=== PATIENT | female | born 1960 | race Caucasian/White ===

== ENCOUNTER → 2018-07-08 08:08 | Outpatient (CLI) | payer OTHER, SELFPAY ==
[2018-07-08 09:20] LABS: Appearance Urine UA CLEAR; Bilirubin Urine UA NEGATIVE (NEGATIVE); Color Urine UA YELLOW; Glucose Urine UA NEGATIVE (Negative); Ketones Urine UA NEGATIVE (NEGATIVE); Leukocyte Esterase Urine UA NEGATIVE (NEGATIVE); Nitrite Urine UA NEGATIVE (Negative); Occult Blood Urine UA TRACE-LYSED (Negative); Protein Urine UA NEGATIVE (Negative); Urobilinogen Urine UA 0.2 E.U./dL (0.2); pH Urine UA 6.5 (4.5-8.0)
[2018-07-08 09:22] LABS: Add Manual Diff / Slide Review NO; Basophils Absolute Auto 0 /uL (0-100); Basophils Percent Auto 0.8 % (0-2); Eosinophils Absolute Auto 200 /uL (0-450); Eosinophils Percent Auto 3.3 % (2-4); Hematocrit 39.9 % (36-46); Hemoglobin 13.2 g/dL (12.0-16.0); Lymphocytes Absolute Auto 1900 /uL (1100-4500); Lymphocytes Percent Auto 38.3 % (25-40); Mean Corpuscular HGB Conc 33.1 % (30-36); Mean Corpuscular Hemoglobin 30.4 PG (26-34); Mean Corpuscular Volume 91.9 fL (80-100); Monocytes Absolute Auto 500 /uL (0-900); Monocytes Percent Auto 9.5 % (3-14); Neutrophils Absolute Auto 2400 /uL (1500-7000); Neutrophils Percent Auto 48.1 % (50-75); Platelet Count 298 X10^3/uL (150-400); Red Blood Cell Count 4.34 X10^6/uL (4.0-5.2); Red Cell Distribution Width 13.9 % (11.6-14.8); White Blood Cell Count 4.9 X10^3/uL (4.5-11.0)
[2018-07-08 09:49] LABS: Alanine Aminotransferase 18 IU/L (9-52); Albumin 4.5 g/dL (3.5-5.0); Albumin Globulin Ratio 1.6 (1.0-2.8); Alkaline Phosphatase 64 U/L (38-126); Aspartate Aminotransferase 34 IU/L (14-36); BUN Creatinine Ratio 23.3 (6-22); Bilirubin Total 0.6 mg/dL (0.2-1.3); Blood Urea Nitrogen 21 mg/dL (7-17); Calcium 9.2 mg/dL (8.4-10.2); Carbon Dioxide 29 mmol/L (22-32); Chloride 101 mmol/L (98-107); Cholesterol 225 mg/dL (140-199); Estimated Glomerular Filt Rate > 60.0 mL/min (>60); Globulin 2.8 g/dL (1.7-4.1); Glucose 91 mg/dL (70-100); HEMOLYSIS < 15 (0-50); Potassium 3.9 mmol/L (3.4-5.1); Sodium 138 mmol/L (137-145); Total Protein 7.3 g/dL (6.3-8.2); Triglycerides 45 mg/dL (35-150)
[2018-07-08 10:01] LABS: HDL Cholesterol 133 mg/dL (40-60); LDL Cholesterol Calculated 83 mg/dL (<100)
[2018-07-08 10:15] LABS: Thyroid Stimulating Hormone 1.64 uIU/mL (0.47-4.68)
== END ==
PROVIDERS: PCP Family Medicine; Visit Provider Family Medicine
DX: I10 Essential (primary) hypertension (principal); Z00.00 Encounter for general adult medical examination without abnormal findings; Z13.220 Encounter for screening for lipoid disorders; Z13.29 Encounter for screening for other suspected endocrine disorder
CPT/HCPCS: 36415; 80053; 80061; 81003; 84443; 85025

== ENCOUNTER → 2018-10-07 10:45 | Outpatient (CLI) | payer OTHER, SELFPAY ==
--- NOTE | 2018-10-07 10:46 | DI.MG.S_ITS ---
BILATERAL DIGITAL SCREENING MAMMOGRAM 3D/2D WITH CAD: 10/07/2018 CLINICAL: Routine screening. Comparison is made to exams dated: 01/27/2008 mammogram and 02/09/2008 mammogram - [facility]. The tissue of both breasts is heterogeneously dense. This may lower the sensitivity of mammography. Current study was also evaluated with a Computer Aided Detection (CAD) system. No significant masses, calcifications, or other findings are seen in either breast. There has been no significant interval change. IMPRESSION: NEGATIVE There is no mammographic evidence of malignancy. A 1 year screening mammogram is recommended. This exam was interpreted at Station ID: [id number]. NOTE: For mammograms, a report in lay terms will be sent to the patient. Approximately 15% of breast malignancies will not be visualized mammographically. In the management of a palpable breast mass, a negative mammogram must not discourage biopsy of a clinically suspicious lesion. Electronically Signed By: Jasmeet oconnell/yobani:10/08/2018 06:33:06 letter sent: Normal Exam ACR BI-RADS Category 1: Negative 3341F
== END ==
PROVIDERS: PCP Family Medicine; Visit Provider Family Medicine
DX: Z12.31 Encounter for screening mammogram for malignant neoplasm of breast (principal)
CPT/HCPCS: 77063; 77067

== ENCOUNTER → 2019-10-20 07:35 | Outpatient (CLI) | payer OTHER, SELFPAY ==
[2019-10-20 08:28] LABS: Alanine Aminotransferase 21 IU/L (<35); Albumin 4.3 g/dL (3.5-5.0); Albumin Globulin Ratio 1.7 (1.0-2.8); Alkaline Phosphatase 63 U/L (38-126); Aspartate Aminotransferase 32 IU/L (14-36); BUN Creatinine Ratio 19.3 (6-22); Bilirubin Total 0.8 mg/dL (0.2-1.3); Blood Urea Nitrogen 17 mg/dL (7-17); Calcium 9.9 mg/dL (8.4-10.2); Carbon Dioxide 27 mmol/L (22-32); Chloride 99 mmol/L (98-107); Cholesterol 208 mg/dL (140-199); Estimated Glomerular Filt Rate > 60.0 mL/min (>60); Globulin 2.6 g/dL (1.7-4.1); Glucose 106 mg/dL (80-110); HEMOLYSIS < 15 (0-50); Potassium 4.3 mmol/L (3.4-5.1); Sodium 133 mmol/L (137-145); Total Protein 6.9 g/dL (6.3-8.2); Triglycerides 43 mg/dL (35-150)
[2019-10-20 08:33] LABS: Hemoglobin A1C% w Est Avg Glu 5.3 % (4.0-6.0)
[2019-10-20 08:41] LABS: HDL Cholesterol 130 mg/dL (40-60); LDL Cholesterol Calculated 69 mg/dL (<100)
[2019-10-20 08:58] LABS: Thyroid Stimulating Hormone 1.56 uIU/mL (0.47-4.68)
== END ==
PROVIDERS: PCP Family Medicine; Referring Provider Family Medicine; Visit Provider Family Medicine
DX: I10 Essential (primary) hypertension (principal)
CPT/HCPCS: 36415; 80053; 80061; 83036; 84443

== ENCOUNTER → 2020-06-27 07:42 | Outpatient (CLI) | payer OTHER, SELFPAY ==
[2020-06-27] MEDS: COVID-19 VACC #1, MRNA(MOD) 100 MCG/0.5 ML VIAL IM (07:52)
== END ==
PROVIDERS: Visit Provider Internal Medicine
DX: Z23 Encounter for immunization (principal)
CPT/HCPCS: 0011A; 91301

== ENCOUNTER → 2020-07-25 07:38 | Outpatient (CLI) | payer OTHER, SELFPAY ==
[2020-07-25] MEDS: COVID-19 VACC #2, MRNA(MOD) 100 MCG/0.5 ML VIAL IM (07:49)
== END ==
PROVIDERS: PCP Family Medicine; Visit Provider Internal Medicine
DX: Z23 Encounter for immunization (principal)
CPT/HCPCS: 0012A; 91301

== ENCOUNTER → 2020-07-30 09:55 | Outpatient (CLI) | payer OTHER, SELFPAY ==
[2020-07-30 10:47] LABS: Alanine Aminotransferase 19 IU/L (<35); Albumin 4.2 g/dL (3.5-5.0); Albumin Globulin Ratio 1.3 (1.0-2.8); Alkaline Phosphatase 64 U/L (38-126); Aspartate Aminotransferase 30 IU/L (14-36); BUN Creatinine Ratio 25.3 (6-22); Bilirubin Total 0.3 mg/dL (0.2-1.3); Blood Urea Nitrogen 20 mg/dL (7-17); Calcium 9.5 mg/dL (8.4-10.2); Carbon Dioxide 29 mmol/L (22-32); Chloride 98 mmol/L (98-107); Cholesterol 206 mg/dL (140-199); Estimated Glomerular Filt Rate > 60.0 mL/min (>60); Globulin 3.2 g/dL (1.7-4.1); Glucose 114 mg/dL (80-110); HDL Cholesterol 98 mg/dL (40-60); HEMOLYSIS < 15 (0-50); LDL Cholesterol Calculated 101 mg/dL (<100); Potassium 4.2 mmol/L (3.4-5.1); Sodium 135 mmol/L (137-145); Total Protein 7.4 g/dL (6.3-8.2); Triglycerides 36 mg/dL (35-150)
[2020-07-30 15:12] LABS: Creatinine Urine Random 45.3 mg/dL
[2020-07-30 15:46] LABS: Microalbumin Urine Random < 0.6 mg/dL (0-1.6)
== END ==
PROVIDERS: PCP Family Medicine; Referring Provider Family Medicine; Visit Provider Family Medicine
DX: I10 Essential (primary) hypertension (principal)
CPT/HCPCS: 36415; 80053; 80061; 82043; 82570

== ENCOUNTER → 2021-04-22 08:58 | Outpatient (CLI) | payer OTHER, SELFPAY ==
[2021-04-22 09:36] LABS: Add Manual Diff / Slide Review NO; Basophils Absolute Auto 0 /uL (0-100); Basophils Percent Auto 0.8 % (0-2); Eosinophils Absolute Auto 100 /uL (0-450); Eosinophils Percent Auto 1.4 % (2-4); Hematocrit 37.7 % (36-46); Hemoglobin 12.7 g/dL (12.0-16.0); Lymphocytes Absolute Auto 1800 /uL (1100-4500); Lymphocytes Percent Auto 33.1 % (25-40); Mean Corpuscular HGB Conc 33.7 % (30-36); Mean Corpuscular Hemoglobin 29.8 PG (26-34); Mean Corpuscular Volume 88.6 fL (80-100); Monocytes Absolute Auto 400 /uL (0-900); Monocytes Percent Auto 7.7 % (3-14); Neutrophils Absolute Auto 3000 /uL (1500-7000); Platelet Count 285 X10^3/uL (150-400); Red Blood Cell Count 4.26 X10^6/uL (4.0-5.2); Red Cell Distribution Width 13.7 % (11.6-14.8); White Blood Cell Count 5.3 X10^3/uL (4.5-11.0)
[2021-04-22 09:48] LABS: Hemoglobin A1C% w Est Avg Glu 5.4 % (4.0-6.0)
[2021-04-22 10:16] LABS: Alanine Aminotransferase 18 IU/L (<35); Albumin 4.1 g/dL (3.5-5.0); Albumin Globulin Ratio 1.4 (1.0-2.8); Alkaline Phosphatase 70 U/L (38-126); Aspartate Aminotransferase 29 IU/L (14-36); BUN Creatinine Ratio 21.1 (6-22); Bilirubin Total 0.6 mg/dL (0.2-1.3); Blood Urea Nitrogen 19 mg/dL (7-17); Calcium 9.7 mg/dL (8.4-10.2); Carbon Dioxide 31 mmol/L (22-32); Chloride 103 mmol/L (98-107); Cholesterol 211 mg/dL (140-199); Estimated Glomerular Filt Rate > 60.0 mL/min (>60); Globulin 2.9 g/dL (1.7-4.1); Glucose 106 mg/dL (80-110); HDL Cholesterol 107 mg/dL (40-60); HEMOLYSIS < 15 (0-50); LDL Cholesterol Calculated 93 mg/dL (<100); Potassium 4.4 mmol/L (3.4-5.1); Sodium 136 mmol/L (137-145); Triglycerides 56 mg/dL (35-150)
[2021-04-22 10:45] LABS: TSH w/ Reflex to FT4 1.09 uIU/mL (0.47-4.68)
== END ==
PROVIDERS: PCP Family Medicine; Referring Provider Family Medicine; Visit Provider Family Medicine
DX: E78.5 Hyperlipidemia, unspecified (principal); I10 Essential (primary) hypertension; R73.03 Prediabetes; Z00.00 Encounter for general adult medical examination without abnormal findings
CPT/HCPCS: 36415; 80053; 80061; 83036; 84443; 85025

== ENCOUNTER → 2021-09-30 09:08 | Outpatient (CLI) | payer OTHER, SELFPAY ==
[2021-09-30 12:12] LABS: COVID19 -Nasal RAPID Negative (Negative)
== END ==
PROVIDERS: PCP Family Medicine; Visit Provider Surgery
DX: Z20.822 Contact with and (suspected) exposure to COVID-19 (principal); Z01.812 Encounter for preprocedural laboratory examination
CPT/HCPCS: 87635; C9803

== ENCOUNTER 2021-10-01 08:06 | Day surgery (SDC) | payer OTHER, SELFPAY ==
--- NOTE | 2021-10-01 | PATH_ITS ---
[facility] Accession Number: [id number] . 01 Material submitted: . rectum - RECTAL POLYP . 01 Diagnosis: Rectum, Polyp, Biopsy: Tubular adenoma. [facility] [place] 10/02/2021 1038 Local . 01 Electronically signed: . Karuna Mcallister MD, Pathologist NPI- [id number] . 01 Gross description: . RECTAL POLYP: Received in formalin are 2 fragment(s) of guerra, soft tissue measuring 0.2 x 0.2 x 0.2 cm to 0.3 x 0.3 x 0.3 cm submitted entirely in 1 cassette(s) /AC 10/01/2021 2328 Local . 01 Pathologist provided ICD-10: D12.8 . 01 CPT . 501727 Specimen Comment: A courtesy copy of this report has been sent to [phone] Performed at: 01 [facility] [address] [place] [address], [place], [place] [id number] MD Ben Rdz MD Phone: [phone]
[2021-10-01] MEDS: LACTATED RINGERS 1,000 ML 150 ML IV (08:16)
--- NOTE | 2021-10-01 08:20 | P.HP_ITS ---
History of Present Illness History of Present Illness Date Patient Seen: 10/01/21 Time Patient Seen: 08:20 Date of Onset of Symptoms: 10/01/21 [place] [facility] [place] Last colonoscopy 12 years ago. No problems then. Currently no symptoms or family history for colon cancer Patient History Medical History Atopic dermatitis Borderline hyperlipidemia Cervical cancer screening Chlamydia (~1988) Eczema Hearing loss Hypertension Pre-diabetes Preventative health care Preventative health care Psoriasis (~1975) Ruptured tympanic membrane (~1969) Screening for breast cancer Skin lesions Vision disorder Family & Social History Family History Father Cancer Diabetes mellitus History of heart disease Hypertension Hyperlipidemia Mother Hypertension Grandfather History of heart disease Grandmother Diabetes mellitus Grandmother History of heart disease Tobacco & Substance use: Smoking Status Never smoker alcohol intake current Meds Home Medications and Allergies Home Medications Medication Instructions Recorded Confirmed Type lisinopril 20 mg tablet See Rx Instructions .Route 09/29/21 Rx .COMPLEX #90 tabs Allergies Allergy/AdvReac Type Severity Reaction Status Date / Time Penicillins AdvReac Intermediate Rash Verified 10/01/21 08:16 From GOLD MAZA ANTI-ITCH Allergy Intermediate Uncoded 10/01/21 08:16 Review of Systems Review of Systems ROS: Yes All systems reviewed with the patient and are negative except as otherwise documented Exam Const General: cooperative and comfortable Nutritional Appearance: average body habitus Orientation: alert HENMT Head: normal to inspection, normocephalic and atraumatic Nose: external nose normal Mouth: oral mucosae normal Eyes General: appearance normal, both eyes and all related structures Sclera: sclerae normal Neck Neck: trachea midline Chest Chest: normal inspection of the chest Resp Effort & Inspection: normal respiratory effort and able to speak in complete sentences Auscultation: clear to auscultation bilaterally Cardio Rate: regular rate Rhythm: regular rhythm GI Inspection: normal to inspection Skin General: no rashes or lesions noted Hair: normal Neuro General: patient awake and patient oriented x3 Cognition: normal cognition Extrem General: normal to inspection Psych Appearance: grossly normal Judgment: judgment good Assessment & Plan Assessment & Plan narrative: Colon cancer screening Colonoscopy with moderate sedation COVID-19 COVID-19 status: Negative Time Spent With Patient Time with patient: less than 30 minutes Critical Care time: I spent a total of [] minutes of critical care time on this patient's care today; this time is exclusive of procedural time.
[2021-10-01 08:22] VITALS: BP 133/86; PULSE 90; RESP 16; TEMP 36.9; O2SAT 99; BMI 28.3
--- NOTE | 2021-10-01 09:21 | PM.OP.COLON ---
Operative Date/Time/Diagnoses Date of procedure: 10/01/21 Time of procedure: 09:21 Pre-op diagnosis: Colon cancer screening Post-op diagnosis: same Procedure & Clinicians Study performed: Colonoscopy with polypectomy using cold forceps Same procedure as scheduled: Yes Indications: Colon cancer screening Surgeon: Randee Waddell Procedure Notes SCOAP/Timeout: Done Procedure in detail: Preop diagnosis: Colon cancer screening Postop diagnosis: Same Operative procedure: Colonoscopy with moderate sedation and polypectomy using cold forceps Surgeon: MD Bairon Anesthetic: Versed 4 mg, fentanyl 150 mcg Findings: Single rectal polyp, 3 mm. Taken with cold forceps, Procedure: Patient placed in a lateral position. Rectal exam performed showing a large hemorrhoidal tag but normal tone no masses. Scope was inserted into the rectum advanced to ileocecal valve with minimal difficulty. Insufflation extraction scope and the above findings. Retroflex was included in the rectum. Impression: Single polyp in the rectal area grossly appearing adenomatous. Plan: Repeat colonoscopy 5 years unless pathology proves polyp to be benign Sedation minutes: 11 Findings: polyp(s) (Rectal polyp, 3 mm in size.) Specimen(s): other (Rectal polyp) Complications: none Post-procedure Recommendations: Colonoscopy in 5 years Follow up: as needed Disposition: PACU
[2021-10-01] MEDS: MIDAZOLAM 5 MG/5 ML VIAL 4 MG IV (09:25)
[2021-10-01] MEDS: fentaNYL 250 MCG/5 ML INJ 150 MCG IV (09:26)
[2021-10-01 09:29] VITALS: BP 106/61; PULSE 70; RESP 12; TEMP 37.1; O2SAT 100
[2021-10-01 09:32] VITALS: BP 104/53; PULSE 72; RESP 17; O2SAT 100
[2021-10-01 09:37] VITALS: BP 116/68; PULSE 75; RESP 16; TEMP 37.4; O2SAT 100
[2021-10-01 09:46] VITALS: BP 118/68; PULSE 70; RESP 16; TEMP 36.5; O2SAT 98
[2021-10-01 09:52] VITALS: BP 118/68; PULSE 72; RESP 16; TEMP 36.1; O2SAT 98
== END 2021-10-01 09:56 | disposition home or self-care (01) ==
PROVIDERS: PCP Family Medicine; Referring Provider Surgery; Visit Provider Surgery
PROC: 0DJD8ZZ Inspection of Lower Intestinal Tract, Via Natural or Artificial Opening Endoscopic (ICD-10-PCS; CPT 45378; principal; 2021-10-01 09:15)
DX: Z12.11 Encounter for screening for malignant neoplasm of colon (principal); D12.8 Benign neoplasm of rectum
CPT/HCPCS: 45380; 99152; J2250; J3010

== ENCOUNTER 2021-11-07 10:32 | Emergency (ER) | payer OTHER, SELFPAY ==
[2021-11-07 10:37] VITALS: BP 184/90; PULSE 88; RESP 15; TEMP 36.7; O2SAT 98; BMI 28.7
--- NOTE | 2021-11-07 11:51 | ED.SKABFB ---
HPI - Skin/Abscess/Foreign Bdy General Chief complaint: Skin/Abscess/Foreign Body Stated complaint: Shingles on face, moving to eye Time Seen by Provider: 11/07/21 11:04 Source: patient Mode of arrival: Ambulatory Limitations: no limitations History of Present Illness HPI narrative: Patient is a 61-year-old female who presents with no herpes zoster infection on left side of her face affecting facial nerve, buccal nerver, presenting with increasing pain. She actually initially was diagnosed 11/05/2021 she was placed on valacyclovir she has been taking it but having increasing pain. She actually thought she had a dental infection initially she went to her dentist and then the vesicular rash started. She does have some sores in her mouth she has been able to eat and drink but it is quite painful. She denies any eye involvement but erythema does go right up to the inferior part of her eye. Related Data Previous Rx's Medication Instructions Recorded lisinopril 20 mg tablet See Rx Instructions .Route 09/29/21 .COMPLEX #90 tabs valacyclovir 1 gram tablet 1,000 mg PO TID 7 days #21 tabs 11/05/21 gabapentin 300 mg capsule 300 mg PO BEDTIME #30 caps 11/07/21 hydrocodone 5 mg-acetaminophen 325 1 tab PO Q6H PRN pain #15 tabs 11/07/21 mg tablet prednisone 20 mg tablet 40 mg PO DAILY #10 tabs 11/07/21 Allergies Allergy/AdvReac Type Severity Reaction Status Date / Time Penicillins AdvReac Intermediate Rash Verified 11/07/21 10:40 From GOLD MAZA ANTI-ITCH Allergy Intermediate Uncoded 11/05/21 15:44 Review of Systems Review of Systems Narrative: GENERAL: Denies chills,fever HEENT: Denies throat pain RESPIRATORY: Denies dyspnea, cough, wheezing CARDIOVASCULAR: Denies chest pain, palpitations GASTROINTESTINAL: Denies nausea, vomiting MUSCULOSKELETAL: Denies extremity pain, injury SKIN: See HPI NEUROLOGIC: Denies weakness, dizziness, headache, numbness 8 point review of systems is negative except for those stated above and HPI Patient History Medical History Atopic dermatitis Borderline hyperlipidemia Cervical cancer screening Chlamydia (~1988) Eczema Hearing loss Hypertension Pre-diabetes Preventative health care Preventative health care Psoriasis (~1975) Ruptured tympanic membrane (~1970) Screening for breast cancer Skin lesions Vision disorder Family History Father Cancer Diabetes mellitus History of heart disease Hypertension Hyperlipidemia Mother Hypertension Grandfather History of heart disease Grandmother Diabetes mellitus Grandmother History of heart disease Social History household members: spouse Smoking Status: Never smoker alcohol intake: current Smoking Status: Never smoker alcohol intake frequency: 0-2 drinks per day Substance Use Type: does not use Exam Initial Vital Signs Initial Vital Signs: Vital Signs Temperature 98.0 F 11/07/21 10:37 Pulse Rate 88 11/07/21 10:37 Respiratory Rate 15 11/07/21 10:37 Blood Pressure 184/90 H 11/07/21 10:37 Pulse Oximetry 98 11/07/21 10:37 Oxygen Delivery Method 11/07/21 10:37 GENERAL: Alert 61-year-old female appears uncomfortable EYE: Left eye was treated with proparacaine, stained with fluorescein. No dye uptake. No foreign body. Dendritic lesions CARDIOVASCULAR: peripheral pulses in tact, cap refill <2 sec RESPIRATORY: No respiratory distress, speaks in full sentences without difficulty EXTREMITIES: Normal range of motion, no clubbing or edema. Neurovascularly intact NEUROLOGICAL: Cranial nerves II through XII grossly intact. Normal gait and speech. SKIN: This a killer rash on left side of face along the buccal nerve involving left upper lip mild sores in mouth no internal nasal involvement, erythema goes up to inferior part of her eye Course Orders Ordered: Discontinued Medications Fluorescein Sodium (Fluorescein 1 Mg Strip) 1 mg EYE-BOTH NOW ONE Stop: 11/07/21 12:06 Last Admin: 11/07/21 13:08 Dose: 1 mg Documented By: AT Proparacaine HCl (Proparacaine 0.5% Ophth Jelly) 1 drops EYE-BOTH NOW ONE Stop: 11/07/21 12:06 Last Admin: 11/07/21 13:08 Dose: 1 drop Documented By: AT Vital Signs Vital signs: Vital Signs - 8 hr 11/07/21 10:37 Temperature 98.0 F Pulse Rate 88 Respiratory Rate 15 Blood Pressure 184/90 H Pulse Oximetry 98 Oxygen Delivery Method Room Air MDM - Skin/Abscess/Foreign Bdy MDM Narrative Medical decision making narrative: The patient has shingles. It seems to be isolated no nasal or eye involvement. He was started on Valtrex but no pain medication or prednisone. Please medications long gabapentin will be added to hopefully keep her comfortable. Discharge Plan Departure Patient Disposition: Home Clinical Impression: Herpes zoster Instructions: DI for Shingles Activity Restrictions/Additional Instructions: *You have been diagnosed with shingles *What to do: This should start to get better but it will take time. Try to stay hydrated with smoothies and liquids. *Continue to take medications as directed-- SENT TO [facility] 1 tablet every 6 hours if needed for severe pain Prednisone 40 mg once a day for 5 days Gabapentin 100 mg at night as needed for pain (good for nerves) *Follow up with your primary care provider in 2-3 days or call [phone] *Return to ER if you should have fever increasing redness, eye pain or any new, worsening or concerning symptoms CONTROLLED SUBSTANCE DISCHARGE (Narcotoic/benzodiazepine/Flexeril/Phenergan) 1. You have been prescribed narcotic medications, it does have acetaminophen/Tylenol/paracetamol in it, DO NOT TAKE MORE THAN 4,00mg in 24 hours of Tylenol. TRAMADOL DOES NOT CONTAIN TYLENOL 2. Please understand that we cannot provide further refills of narcotics, benzodiazepines or controlled substances through the ED and her pain management will need to be through your provider. 3. While on these medications you cannot drive or operate heavy machinery. 4. You cannot sign legal documents or perform any duties such as this. 5. As long as you're taking opiate pain medications he should also be taking a stool softener such as Colace, Dulcolax, MiraLAX or prune juice, to help avoid constipation. Prescriptions: New hydrocodone-acetaminophen 5-325 mg tablet 1 tab PO Q6H PRN (Reason: pain) Qty: 15 0RF prednisone 20 mg tablet 40 mg PO DAILY Qty: 10 0RF gabapentin 300 mg capsule 300 mg PO BEDTIME Qty: 30 0RF No Action valacyclovir 1 gram tablet 1,000 mg PO TID 7 Days Qty: 21 0RF lisinopril 20 mg tablet See Rx Instructions .ROUTE .COMPLEX Qty: 90 2RF Dose Instruction: TAKE ONE TABLET BY MOUTH ONE TIME DAILY Rx Instructions: TAKE ONE TABLET BY MOUTH ONE TIME DAILY Referrals: Aman Deshpande DO [Primary Care Provider] - Visit Report Forms: Patient Portal/API
[2021-11-07 13:03] VITALS: BP 147/87
[2021-11-07] MEDS: FLUORESCEIN 1 MG STRIP EYE-BOTH (13:08)
[2021-11-07] MEDS: PROPARACAINE 0.5% OPHTH SOL 1 DROPS EYE-BOTH (13:08)
== END 2021-11-07 13:09 | disposition home or self-care (01) ==
PROVIDERS: Emergency Provider Emergency Medicine; PCP Family Medicine
DX: B02.9 Zoster without complications (principal)
CPT/HCPCS: 99282

== ENCOUNTER → 2021-12-25 08:18 | Outpatient (CLI) | payer OTHER, SELFPAY ==
--- NOTE | 2021-12-25 08:19 | DI.US.S_ITS ---
PROCEDURE: US PELVIC COMPLETE INDICATIONS: PMB TECHNIQUE: Real-time scanning was performed of the pelvic organs, with image documentation. Additional endovaginal scanning was necessary due to incomplete visualization of the adnexal and endometrial structures by transabdominal scanning. COMPARISON: None. FINDINGS: Uterus: Uterus is anteverted and enlarged in size at 22.5 x 10.3 x 11.2 cm. The myometrium is diffusely heterogeneous. The endometrial stripe is not well defined. Numerous irregular and cystic areas can be seen along the central uterus. Ovaries: Neither ovary can be seen. No adnexal masses are seen on either side. Other: No pathologic free abdominal or pelvic fluid. IMPRESSION: Abnormal, enlarged uterus, with irregular cystic and solid areas along the central uterus. There is high suspicion for neoplasm. However, differential diagnosis includes prominent irregular fibroids. We strive to produce accurate, complete, and clear reports of imaging services. To assist us in improving patient care, this report was composed using standard report templates and voice recognition software. Therefore, it may contain abnormal punctuation, insertions and/or omissions. Occasional wrong-word or sound-alike substitutions may occur. Though we review the report and make efforts to correct it, we do recommend that the report be read carefully in proper context to recognize any text inaccuracies. Dictated by: Thomas Blair M.D. on 12/25/2021 at 8:14 Approved by: Thomas Blair M.D. on 12/25/2021 at 8:16
== END ==
PROVIDERS: PCP Family Medicine; Referring Provider Obstetrics & Gynecology; Visit Provider Obstetrics & Gynecology
DX: N95.0 Postmenopausal bleeding (principal); N85.2 Hypertrophy of uterus
CPT/HCPCS: 76830; 76856

== ENCOUNTER → 2021-12-25 17:10 | Outpatient (CLI) | payer OTHER, SELFPAY ==
--- NOTE | 2021-12-25 17:14 | DI.MRI.S_ITS ---
PROCEDURE: MR PELVIS WO/W CON INDICATIONS: Large uterine mass on US 12/25/2021 TECHNIQUE: Coronal HASTE, sagittal breath-hold T2 FSE; axial T1 FSE with and without fat saturation through the pelvis. Optional long- and short-axis uterine nonbreath-hold T2 FSE through the uterus. Sagittal or axial dynamic VIBE during administration of contrast. Post-contrast axial or coronal VIBE/2-D FLASH with fat saturation from the iliac crests to the symphysis. Optional diffusion weighted imaging and ADC may be performed. COMPARISON: [facility], US, US PELVIC COMPLETE, 12/25/2021, 8:26. FINDINGS: Image quality: Excellent. Uterus: Uterus measures 7.4 x 4.1 x 6.5 cm. At least 3 fibroids are present, for example a subserosal/pedunculated appearing fibroid at the right posterior lower uterine body measuring 2.6 x 2.3 x 2.7 cm. Endometrium is non-thickened, 3 mm. Junctional zone is normal in thickness at 12 mm or less. Adnexa: A large cystic and solid mass is present in the pelvis and lower abdomen. The organ of origin of the mass is uncertain however normal ovaries are not identified and an ovarian origin is suspected. The mass abuts the lower anterior uterine body (for example series 3, image 16) but the mass does not definitively arise from the uterus. The mass also abuts the upper aspect of the urinary bladder without definite evidence of invasion. The mass has approximate dimensions of 13.8 x 8.4 x 8.4 cm. On postcontrast images, there is thickened/nodular enhancement predominantly at the periphery of the finding with central hypoenhancement. The mass appears cystic and/or necrotic centrally. Adjacent serpiginous structures with internal fluid signal are indeterminate for small bowel and or hydrosalpinx. Urinary system: Bladder wall is normal in thickness. Distal ureters are not clearly visualized, probably not dilated. Nodes and vessels: A 2.5 x 2.3 cm circumscribed appearing nodular structure along the right lateral margin of the pelvic mass abutting the right external iliac vein (for example series 21, image 67) is indeterminate for a portion of the dominant mass versus and enlarged/abnormal lymph node. Otherwise, no definite pelvic adenopathy visualized. Iliac vessels are normal in size. Bowel and peritoneum: Small amount of nonspecific pelvic free fluid. Inferior colon and small bowel loops are normal in caliber. Soft tissues: No inguinal hernias. Bones: No definite suspicious focal lesion identified. IMPRESSION: 1. Large cystic and solid mass in the pelvis and lower abdomen is highly suspicious for neoplasm. The organ of origin is uncertain but an ovarian mass is suspected. A very large pedunculated degenerating fibroid is possible but considered less likely. Gynecology consultation is recommended to direct further management. 2. A 2.5 cm structure along the right lateral margin of the pelvic mass abutting the right external iliac vein is indeterminate for a portion of the dominant mass versus an enlarged/abnormal lymph node. Otherwise, no definite pelvic adenopathy identified. Dictated by: Rickie Denis M.D. on 12/26/2021 at 13:13 Approved by: Rickie Denis M.D. on 12/26/2021 at 13:45
--- NOTE | 2021-12-25 17:21 | DI.RAD.S_ITS ---
PROCEDURE: XR CHEST 2V INDICATIONS: Uterine mass found on pelvic US 12/25/2021; R/O lung mets TECHNIQUE: 2 views of the chest were acquired. COMPARISON: None. FINDINGS: Surgical changes and devices: None. Lungs and pleura: There is hyperinflation of the lungs with flattening of the hemidiaphragms compatible with COPD. No definite nodules or mass lesions identified radiographically. No acute consolidation. No pleural effusions or pneumothorax. Mediastinum: Mediastinal contours are normal. Heart size is normal. Bones and chest wall: No suspicious bony abnormalities. Soft tissues appear unremarkable. IMPRESSION: 1. No radiographic evidence of metastatic disease. Dictated by: Ben Isaacs M.D. on 12/25/2021 at 23:55 Approved by: Ben Isaacs M.D. on 12/25/2021 at 23:57
== END ==
PROVIDERS: PCP Family Medicine; Referring Provider Obstetrics & Gynecology; Visit Provider Obstetrics & Gynecology
DX: N95.0 Postmenopausal bleeding (principal); N85.8 Other specified noninflammatory disorders of uterus; N85.2 Hypertrophy of uterus; D25.2 Subserosal leiomyoma of uterus; R19.09 Other intra-abdominal and pelvic swelling, mass and lump
CPT/HCPCS: 71046; 72197; 76830; 76856; A9579

== ENCOUNTER → 2021-12-28 09:13 | Outpatient (CLI) | payer OTHER, SELFPAY ==
[2021-12-28 10:16] LABS: Lactate Dehydrogenase 440 U/L (313-618)
[2021-12-28 10:44] LABS: Cancer Antigen 125 256 U/mL (0-35); Carcinoembryonic Antigen 1.5 ng/mL (0.1-3.0)
[2021-12-29 07:36] LABS: Alpha Fetoprotein 5.6 ng/mL (0.0-9.2)
[2022-01-01 14:48] LABS: Inhibin B 14.9 pg/mL (0.0-16.9)
== END ==
PROVIDERS: PCP Family Medicine; Referring Provider Obstetrics & Gynecology; Visit Provider Obstetrics & Gynecology
DX: R19.00 Intra-abdominal and pelvic swelling, mass and lump, unspecified site (principal)
CPT/HCPCS: 36415; 82105; 82378; 83520; 83615; 86304; 86305

== ENCOUNTER → 2022-01-07 16:03 | Outpatient (CLI) | payer OTHER, SELFPAY ==
[2022-01-07 16:50] LABS: HEMOLYSIS < 15 (0-50); Iron 39 ug/dL (37-170)
[2022-01-07 17:01] LABS: Percent Iron Saturation 17 % (15-50); Total Iron Binding Capacity 236 ug/dL (265-497); Transferrin 170 mg/dL (206-381)
== END ==
PROVIDERS: PCP Family Medicine; Referring Provider Specialist; Visit Provider Specialist
DX: Z01.812 Encounter for preprocedural laboratory examination (principal); D64.9 Anemia, unspecified
CPT/HCPCS: 36415; 83540; 83550

== ENCOUNTER → 2022-06-05 08:36 | Outpatient (CLI) | payer OTHER, SELFPAY ==
[2022-06-05 09:31] LABS: Add Manual Diff / Slide Review NO; Basophils Absolute Auto 100 /uL (0-100); Basophils Percent Auto 0.9 % (0-2); Eosinophils Absolute Auto 100 /uL (0-450); Eosinophils Percent Auto 2.5 % (2-4); Hematocrit 37.6 % (36-46); Hemoglobin 12.7 g/dL (12.0-16.0); Lymphocytes Absolute Auto 2200 /uL (1100-4500); Lymphocytes Percent Auto 38.8 % (25-40); Mean Corpuscular HGB Conc 33.8 % (30-36); Mean Corpuscular Hemoglobin 30.2 PG (26-34); Mean Corpuscular Volume 89.6 fL (80-100); Monocytes Absolute Auto 500 /uL (0-900); Monocytes Percent Auto 8.7 % (3-14); Neutrophils Absolute Auto 2800 /uL (1500-7000); Neutrophils Percent Auto 49.1 % (50-75); Platelet Count 271 X10^3/uL (150-400); Red Blood Cell Count 4.19 X10^6/uL (4.0-5.2); Red Cell Distribution Width 15.1 % (11.6-14.8); White Blood Cell Count 5.7 X10^3/uL (4.5-11.0)
[2022-06-05 09:32] LABS: Reticulocyte Count, Percent 0.7 % (1.1-2.6)
[2022-06-05 09:33] LABS: Alanine Aminotransferase 33 IU/L (<35); Albumin 4.3 g/dL (3.5-5.0); Albumin Globulin Ratio 1.4 (1.0-2.8); Alkaline Phosphatase 76 U/L (38-126); Aspartate Aminotransferase 32 IU/L (14-36); BUN Creatinine Ratio 20.5 (6-22); Bilirubin Total 0.8 mg/dL (0.2-1.3); Blood Urea Nitrogen 16 mg/dL (7-17); Calcium 9.2 mg/dL (8.4-10.2); Carbon Dioxide 29 mmol/L (22-32); Chloride 99 mmol/L (98-107); Estimated Glomerular Filt Rate > 60 mL/min (>60); Glucose 95 mg/dL (80-110); HEMOLYSIS < 15 (0-50); Potassium 3.9 mmol/L (3.4-5.1); Sodium 133 mmol/L (137-145); Total Protein 7.3 g/dL (6.3-8.2)
[2022-06-05 10:08] LABS: Ferritin 583 ng/mL (11-264)
[2022-06-05 10:17] LABS: HEMOLYSIS < 15 (0-50); Iron 116 ug/dL (37-170)
[2022-06-05 10:22] LABS: Vitamin B12 329 pg/mL (239-931)
[2022-06-05 10:31] LABS: Percent Iron Saturation 41 % (15-50); Total Iron Binding Capacity 285 ug/dL (265-497); Transferrin 226 mg/dL (206-381)
== END ==
PROVIDERS: PCP Family Medicine; Referring Provider Family Medicine; Visit Provider Family Medicine
DX: D50.8 Other iron deficiency anemias (principal)
CPT/HCPCS: 36415; 80053; 82607; 82728; 83540; 83550; 85025; 85045

== ENCOUNTER → 2022-08-26 16:27 | Outpatient (CLI) | payer OTHER, SELFPAY ==
[2022-08-26 17:02] LABS: Add Manual Diff / Slide Review NO; Basophils Absolute Auto 100 /uL (0-100); Basophils Percent Auto 0.8 % (0-2); Eosinophils Absolute Auto 100 /uL (0-450); Eosinophils Percent Auto 1.2 % (2-4); Hematocrit 34.4 % (36-46); Hemoglobin 11.6 g/dL (12.0-16.0); Lymphocytes Absolute Auto 2800 /uL (1100-4500); Lymphocytes Percent Auto 38.4 % (25-40); Mean Corpuscular HGB Conc 33.6 % (30-36); Mean Corpuscular Hemoglobin 30.5 PG (26-34); Mean Corpuscular Volume 90.8 fL (80-100); Monocytes Absolute Auto 400 /uL (0-900); Monocytes Percent Auto 5.8 % (3-14); Neutrophils Absolute Auto 3900 /uL (1500-7000); Neutrophils Percent Auto 53.8 % (50-75); Platelet Count 244 X10^3/uL (150-400); Red Blood Cell Count 3.79 X10^6/uL (4.0-5.2); Red Cell Distribution Width 13.6 % (11.6-14.8); White Blood Cell Count 7.3 X10^3/uL (4.5-11.0)
[2022-08-26 17:21] LABS: Alanine Aminotransferase 23 IU/L (<35); Albumin 4.2 g/dL (3.5-5.0); Albumin Globulin Ratio 1.6 (1.0-2.8); Alkaline Phosphatase 66 U/L (38-126); Aspartate Aminotransferase 30 IU/L (14-36); BUN Creatinine Ratio 20.2 (6-22); Bilirubin Total 0.5 mg/dL (0.2-1.3); Blood Urea Nitrogen 19 mg/dL (7-17); Calcium 9.3 mg/dL (8.4-10.2); Carbon Dioxide 28 mmol/L (22-32); Chloride 99 mmol/L (98-107); Estimated Glomerular Filt Rate > 60 mL/min (>60); Globulin 2.7 g/dL (1.7-4.1); Glucose 97 mg/dL (80-110); HEMOLYSIS < 15 (0-50); Potassium 3.6 mmol/L (3.4-5.1); Sodium 134 mmol/L (137-145); Total Protein 6.9 g/dL (6.3-8.2)
[2022-08-26 17:23] LABS: HEMOLYSIS < 15 (0-50); Iron 121 ug/dL (37-170)
[2022-08-26 17:33] LABS: Percent Iron Saturation 46 % (15-50); Total Iron Binding Capacity 265 ug/dL (265-497); Transferrin 202 mg/dL (206-381)
[2022-08-26 17:56] LABS: Ferritin 446 ng/mL (11-264)
[2022-08-26 18:09] LABS: Cancer Antigen 125 < 5.5 U/mL (0-35)
[2022-08-28 12:14] LABS: Human Epididymis Prot 4 78.7 pmol/L (0.0-96.5)
== END ==
PROVIDERS: PCP Family Medicine; Referring Provider Family Medicine; Visit Provider Family Medicine
DX: C56.2 Malignant neoplasm of left ovary (principal); D64.9 Anemia, unspecified
CPT/HCPCS: 36415; 80053; 82728; 83540; 83550; 85025; 86304; 86305

== ENCOUNTER → 2022-12-17 12:59 | Outpatient (CLI) | payer OTHER, SELFPAY ==
--- NOTE | 2022-12-17 13:00 | DI.MG.S_ITS ---
BILATERAL DIGITAL SCREENING MAMMOGRAM 3D/2D WITH CAD: 12/17/2022 CLINICAL: Routine screening. Comparison is made to exams dated: 10/07/2018 mammogram - [facility], 02/09/2008 mammogram, and 01/27/2008 mammogram - [facility]. Both breasts are heterogeneously dense, which may obscure small masses (category c / 51-75% glandular tissue). Current study was also evaluated with a Computer Aided Detection (CAD) system. No significant masses, calcifications, or other findings are seen in either breast. There has been no significant interval change. IMPRESSION: NEGATIVE There is no mammographic evidence of malignancy. A 1 year screening mammogram is recommended. Based on the Tyrer Cuzick model (a risk assessment model) the patient's lifetime risk is 11.0% and her 10 year risk is 4.9%. According to the ACR, ACS, and NCCN guidelines, an annual breast MRI exam along with mammogram is recommended if the patient's lifetime risk is 20% or greater. This exam was interpreted at Station ID: [id number]. NOTE: For mammograms, a report in lay terms will be sent to the patient. Approximately 15% of breast malignancies will not be visualized mammographically. In the management of a palpable breast mass, a negative mammogram must not discourage biopsy of a clinically suspicious lesion. Electronically Signed By: Rickie edwards/yobani:12/17/2022 15:12:32 letter sent: Normal Exam ACR BI-RADS Category 1: Negative 3341F
== END ==
PROVIDERS: PCP Family Medicine; Referring Provider Family Medicine; Visit Provider Family Medicine
DX: Z12.31 Encounter for screening mammogram for malignant neoplasm of breast (principal)
CPT/HCPCS: 77063; 77067

== ENCOUNTER → 2022-12-30 10:49 | Outpatient (CLI) | payer OTHER, SELFPAY ==
[2022-12-30 11:17] LABS: Add Manual Diff / Slide Review NO; Basophils Absolute Auto 100 /uL (0-100); Eosinophils Absolute Auto 0 /uL (0-450); Eosinophils Percent Auto 0.8 % (2-4); Hematocrit 36.1 % (36-46); Hemoglobin 12.1 g/dL (12.0-16.0); Hemoglobin A1C% w Est Avg Glu 4.9 % (4.0-6.0); Lymphocytes Absolute Auto 1900 /uL (1100-4500); Lymphocytes Percent Auto 33.2 % (25-40); Mean Corpuscular HGB Conc 33.5 % (30-36); Mean Corpuscular Hemoglobin 30.3 PG (26-34); Mean Corpuscular Volume 90.5 fL (80-100); Monocytes Absolute Auto 400 /uL (0-900); Monocytes Percent Auto 7.3 % (3-14); Neutrophils Absolute Auto 3300 /uL (1500-7000); Neutrophils Percent Auto 57.7 % (50-75); Platelet Count 260 X10^3/uL (150-400); Red Blood Cell Count 3.98 X10^6/uL (4.0-5.2); Red Cell Distribution Width 14.4 % (11.6-14.8); White Blood Cell Count 5.8 X10^3/uL (4.5-11.0)
[2022-12-30 11:27] LABS: HEMOLYSIS < 15 (0-50); Iron 139 ug/dL (37-170)
[2022-12-30 11:39] LABS: Percent Iron Saturation 43 % (15-50); Total Iron Binding Capacity 320 ug/dL (265-497); Transferrin 239 mg/dL (206-381)
[2022-12-30 11:43] LABS: Reticulocyte Count, Percent 0.7 % (1.1-2.6)
[2022-12-30 11:57] LABS: TSH w/ Reflex to FT4 0.82 uIU/mL (0.47-4.68)
[2022-12-30 11:58] LABS: Cancer Antigen 125 < 5.5 U/mL (0-35)
[2022-12-30 11:59] LABS: Ferritin 320 ng/mL (11-264)
[2022-12-30 12:14] LABS: Vitamin B12 268 pg/mL (239-931)
== END ==
PROVIDERS: PCP Family Medicine; Referring Provider Family Medicine; Visit Provider Family Medicine
DX: C56.2 Malignant neoplasm of left ovary (principal); D64.9 Anemia, unspecified; D50.8 Other iron deficiency anemias
CPT/HCPCS: 36415; 82607; 82728; 83036; 83540; 83550; 84443; 85025; 85045; 86304

== ENCOUNTER → 2023-01-02 15:46 | Outpatient (CLI) | payer OTHER, SELFPAY ==
--- NOTE | 2023-01-02 15:47 | DI.US.S_ITS ---
PROCEDURE: US ABDOMEN LIMITED INDICATIONS: LEFT SIDE INGUINAL LYMPH NODE TECHNIQUE: Real-time focused scanning was performed of the abdomen, with image documentation. COMPARISON: None. Findings and impression: At the area of interest in the left lower abdomen, no distinct mass, enlarged lymph node, or fluid collections identified. Clinical followup is recommended. If there is new or worsening clinical concern, reimaging could be obtained. Dictated by: Pepe Vega M.D. on 01/02/2023 at 16:29 Approved by: Pepe Vega M.D. on 01/02/2023 at 16:30
== END ==
PROVIDERS: PCP Family Medicine; Referring Provider Family Medicine; Visit Provider Family Medicine
DX: R19.09 Other intra-abdominal and pelvic swelling, mass and lump (principal); R59.9 Enlarged lymph nodes, unspecified
CPT/HCPCS: 76705

== ENCOUNTER → 2023-10-10 08:43 | Outpatient (CLI) | payer OTHER, SELFPAY ==
[2023-10-10 09:36] LABS: Add Manual Diff / Slide Review NO; Basophils Absolute Auto 100 /uL (0-100); Basophils Percent Auto 0.9 % (0-2); Eosinophils Absolute Auto 100 /uL (0-450); Eosinophils Percent Auto 1.4 % (2-4); Hemoglobin 11.9 g/dL (12.0-16.0); Lymphocytes Absolute Auto 2100 /uL (1100-4500); Lymphocytes Percent Auto 32.9 % (25-40); Mean Corpuscular HGB Conc 33.2 % (30-36); Mean Corpuscular Volume 90.4 fL (80-100); Monocytes Absolute Auto 500 /uL (0-900); Monocytes Percent Auto 7.2 % (3-14); Neutrophils Absolute Auto 3600 /uL (1500-7000); Neutrophils Percent Auto 57.6 % (50-75); Platelet Count 259 X10^3/uL (150-400); Red Blood Cell Count 3.98 X10^6/uL (4.0-5.2); Red Cell Distribution Width 14.4 % (11.6-14.8); White Blood Cell Count 6.3 X10^3/uL (4.5-11.0)
[2023-10-10 09:38] LABS: Reticulocyte Count, Percent 0.6 % (1.1-2.6)
[2023-10-10 09:52] LABS: HEMOLYSIS < 15 (0-50)
[2023-10-10 09:57] LABS: Iron 107 ug/dL (37-170)
[2023-10-10 10:00] LABS: Alanine Aminotransferase 19 IU/L (<35); Albumin 4.1 g/dL (3.5-5.0); Albumin Globulin Ratio 1.7 (1.0-2.8); Alkaline Phosphatase 77 U/L (38-126); Aspartate Aminotransferase 25 IU/L (14-36); BUN Creatinine Ratio 16.8 (6-22); Bilirubin Total 0.5 mg/dL (0.2-1.3); Blood Urea Nitrogen 16 mg/dL (7-17); Carbon Dioxide 22 mmol/L (22-32); Chloride 105 mmol/L (98-107); Estimated Glomerular Filt Rate > 60 mL/min (>60); Globulin 2.4 g/dL (1.7-4.1); Glucose 99 mg/dL (80-110); HEMOLYSIS < 15 (0-50); Potassium 4.1 mmol/L (3.4-5.1); Sodium 134 mmol/L (137-145); Total Protein 6.5 g/dL (6.3-8.2)
[2023-10-10 10:07] LABS: Percent Iron Saturation 37 % (15-50); Total Iron Binding Capacity 292 ug/dL (265-497); Transferrin 247 mg/dL (206-381)
[2023-10-10 10:31] LABS: TSH w/ Reflex to FT4 0.88 uIU/mL (0.47-4.68)
[2023-10-10 10:50] LABS: Vitamin B12 222 pg/mL (239-931)
== END ==
PROVIDERS: PCP Family Medicine; Referring Provider Family Medicine; Visit Provider Family Medicine
DX: D64.9 Anemia, unspecified (principal); E78.5 Hyperlipidemia, unspecified; I10 Essential (primary) hypertension
CPT/HCPCS: 36415; 80053; 82607; 83540; 83550; 84443; 85025; 85045

== ENCOUNTER → 2024-01-13 19:29 | Outpatient (CLI) | payer BC, SELFPAY ==
--- NOTE | 2024-01-13 19:33 | DI.RAD.S_ITS ---
PROCEDURE: XR HAND RT MIN 3V INDICATIONS: Lac dorsum/drill press injury; index finger swelling +ROM TECHNIQUE: 3 views of the hand acquired. COMPARISON: None. FINDINGS: Bones: No acute fractures or dislocations. Carpal bones are normally aligned. No suspicious bony lesions. Moderate 1st carpometacarpal osteoarthrosis. Soft tissues: No suspicious soft tissue calcifications. Nonspecific soft tissue edema in the index finger. No radiopaque foreign body is seen. IMPRESSION: No acute osseous abnormality. No radiopaque foreign body. If there is continued clinical concern or persistent symptoms, repeat radiographs or cross-sectional imaging (e.g. CT, MRI) may be helpful for further evaluation. Approved by: Rickie Manuel M.D. on 01/13/2024 at 20:02
== END ==
LOC: RAD 19:30
PROVIDERS: PCP Family Medicine; Referring Provider Student in an Organized Health Care Education/Training Program; Visit Provider Student in an Organized Health Care Education/Training Program
DX: S61.210A Laceration without foreign body of right index finger without damage to nail, initial encounter (principal); S63.610A Unspecified sprain of right index finger, initial encounter; W29.8XXA Contact with other powered hand tools and household machinery, initial encounter
CPT/HCPCS: 73130

== ENCOUNTER → 2024-06-27 08:07 | Outpatient (CLI) | payer MEDICARE, OTHER, SELFPAY ==
--- NOTE | 2024-06-27 08:09 | DI.MG.S_ITS ---
MM screening mammo BI: 06/27/2024. BI-RADS: 1 CLINICAL: 64-year old female for bilateral screening mammogram. Tyrer-Cuzick lifetime risk of 5.4%. No personal or first-degree family history of breast cancer. Personal history of ovarian cancer. PRIOR EXAMS 12/17/2022, 10/07/2018. MAMMOGRAPHY TECHNIQUE: 2D and 3D (tomosynthesis) digital mammographic views obtained, with additional images as needed for full coverage. Current study was also evaluated with a Computer Aided Detection (CAD) system. DENSITY C. The breasts are heterogeneously dense, which may obscure small masses. MAMMOGRAPHY FINDINGS Bilateral: No suspicious mass, asymmetry, microcalcification, or other abnormality seen. No significant change from comparison. IMPRESSION: * No evidence of malignancy. RECOMMENDATIONS Bilateral * Annual screening mammography. OVERALL ASSESSMENT CATEGORY BI-RADS-1: Negative. The [employer] recommends annual screening mammography beginning at age 40 for women with average risk of breast cancer. ELECTRONICALLY SIGNED: Shahana Costa M.D. on 06/27/2024 at 05:14:23 PM PT Interpreting Station ID: [id number]
== END ==
PROVIDERS: PCP Family Medicine; Referring Provider Family Medicine; Visit Provider Family Medicine
DX: Z12.31 Encounter for screening mammogram for malignant neoplasm of breast (principal); R92.333 Mammographic heterogeneous density, bilateral breasts; Z85.43 Personal history of malignant neoplasm of ovary
CPT/HCPCS: 77063; 77067

== ENCOUNTER 2025-03-02 07:45 | Day surgery (SDC) | payer MEDICARE, OTHER, SELFPAY ==
[2025-02-27 14:46] VITALS: BMI 23.4
--- NOTE | 2025-03-02 | PATH_ITS ---
[facility] Accession Number: [id number] No. of containers..01 Tissue . 01 Material submitted: . colon - SIGMOID COLON POLYP . 01 Diagnosis: SIGMOID COLON POLYP: Tubular adenoma. [facility] 03/08/20255 Local . 01 Electronically signed: . Ben Rdz MD, Pathologist NPI- [id number] . 01 Gross description: . Received in formalin with two identifiers and sigmoid colon polyp, are multiple guerra soft tissue fragments aggregating to 1.3 x 0.8 x 0.2 cm. Filtered and submitted entirely in cassette A1. ([id number]) /BARON 03/08/20251334 Local . 01 Pathologist provided ICD-10: D12.5 . 01 CPT . 344519 Specimen Comment: A courtesy copy of this report has been sent to [facility] Performed at: 01 [facility] [place] [address], [place], [place] [id number] MD Ben Rdz MD Phone: [phone]
--- NOTE | 2025-03-02 06:37 | P.HP_ITS ---
History of Present Illness History of Present Illness Date Patient Seen: 03/02/25 Chief complaint: NVC Narrative: 64yo F presents for screening colonoscopy today. [facility] Medical History (Updated 03/02/25 @ 06:37 by Bar Ugalde MD) No blood products Hematochezia Medicare annual wellness visit, initial Ovarian cancer on left Well adult exam Atopic dermatitis Skin lesions Screening for breast cancer Cervical cancer screening Preventative health care Pre-diabetes Borderline hyperlipidemia Preventative health care Hypertension Vision disorder Hearing loss Ruptured tympanic membrane (~1969) Chlamydia (~1988) Eczema Psoriasis (~1975) Surgical History (Updated 02/27/25 @ 14:54 by Nereida Mullins RN) Hx of colonoscopy (09/2021) Hx of resection of small bowel History of gynecologic surgery Family History Father Cancer Diabetes mellitus History of heart disease Hypertension Hyperlipidemia Mother Hypertension Grandfather History of heart disease Grandmother Diabetes mellitus Grandmother History of heart disease Social History household members: spouse alcohol intake: current Meds Home Medications and Allergies Home Medications ?Medication ?Instructions ?Recorded ?Confirmed ?Type sodium,potassium,mag sulfates 17.5 See Rx Instructions PO .COMPLEX 01/11/25 Rx gram-3.13 gram-1.6 gram oral soln #354 mL (Suprep Bowel Prep Kit) lisinopril 10 mg tablet 10 mg PO DAILY #90 tabs 12/22 12/15 Rx Allergies Allergy/AdvReac Type Severity Reaction Status Date / Time Penicillins AdvReac Intermediate Rash Verified 01/11/25 16:07 From [facility] ANTI-ITCH Allergy Intermediate Uncoded 01/11/25 16:07 Exam Narrative Exam Narrative: Const General: healthy appearing, comfortable and no acute distress Orientation: alert and oriented x3 HENMT Ears: hearing grossly normal bilaterally Eyes Visual Griggs: normal visual griggs by confrontation Conjunctivae: conjunctivae normal Sclera: sclerae normal EOM: EOM intact bilaterally Resp Effort & Inspection: normal respiratory effort and able to speak in complete sentences Cardio Rate: regular rate GI Palpation: soft (NT) Extrem General: no pedal edema and no calf tenderness Assessment & Plan Assessment and plan (1) Change in bowel habits: Status: Acute (2) Encounter for screening colonoscopy: Status: Acute Plan Plan colonoscopy, possible biopsy. The risks, benefits and options regarding the procedure were explained to the patient in detail. Risk discussion included but not limited to: bleeding, perforation, unable to reach cecum, missed lesion. The patient was encouraged to ask questions and they were answered to their satisfaction. The patient understands and is agreeable to proceed. Time-Based Coding :: [TOTAL MINUTES] spent with patient and on the chart (including review of chart, obtaining history, exam, reviewing outside data, placing orders, documenting exam and treatment plan, and counseling patient) on [DATE]. 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
[2025-03-02 08:13] VITALS: BP 152/93; PULSE 89; RESP 18; TEMP 36.4; O2SAT 98
[2025-03-02] MEDS: LACTATED RINGERS 1,000 ML 42 ML IV (08:33)
--- NOTE | 2025-03-02 09:41 | P.OP.COLON_ITS ---
Operative Date/Time/Diagnoses Date of procedure: 03/02/25 Time of procedure: 10:06 Pre-op diagnosis: Screening colonoscopy Post-op diagnosis: same Procedure & Clinicians Study performed: Colonoscopy with polypectomy Same procedure(s) as scheduled: Yes Indications: 64yo F, screening colonoscopy Surgeon: Bar Ugalde Anesthesia Type: MAC +/- Procedure Notes SCOAP/Timeout: Performed Procedure in detail: Colonoscopy Patient placed in left lateral recumbent position. Time out was performed. Procedural sedation was administered by anesthesia. Examination began with a thorough inspection of the perianal area. There was no evidence of fissures, fistulae, external hemorrhoids or cutaneous malignancy. The colonoscope was then placed into the rectum and the lumen was insufflated with carbon dioxide. The scope was carefully advanced forward. Ultimately the cecum was intubated and confirmed by identification of the ileocecal valve, the appendiceal orifice and the confluence of the taenia. The scope was then slowly withdrawn examining the colon thoroughly in all directions. In the rectum, retroflexion of the scope was performed for inspection of the distal rectum and anal canal. ?Significant colonoscopy findings: ?1. Quality of the preparation-inadequate, [place] 1, unable to complete ?2. Sigmoid colon polyp, 6mm, sessile, adenomatous appearance, removed with cold snare and retrieved for pathology 3. Will need repeat attempt after longer duration of clear liquids and miralax prior to prep Scope withdrawal time: n/a Findings: polyp(s) Specimen(s): other (polyp) Estimated Blood Loss: 5 Complications: none Impression: Inadequate prep, unable to complete colonoscopy Sigmoid polyp, path pending Post-procedure Plan for aftercare: PACU then home Follow up: as needed Disposition: PACU
[2025-03-02 10:07] VITALS: BP 137/80; PULSE 65; RESP 17; TEMP 36.1; O2SAT 99
[2025-03-02 10:11] VITALS: BP 152/77; PULSE 68; RESP 18; O2SAT 100
[2025-03-02 10:24] VITALS: BP 152/88; PULSE 65; RESP 20; O2SAT 99
== END 2025-03-02 10:27 | disposition home or self-care (01) ==
PROVIDERS: PCP Family Medicine; Referring Provider Family Medicine; Visit Provider Surgery
PROC: 0DJD8ZZ Inspection of Lower Intestinal Tract, Via Natural or Artificial Opening Endoscopic (ICD-10-PCS; CPT 45378; principal; 2025-03-02 08:45)
DX: Z12.11 Encounter for screening for malignant neoplasm of colon (principal); D12.5 Benign neoplasm of sigmoid colon
CPT/HCPCS: 45385; J7120